=== PATIENT | male | born 2000 | race Caucasian/White ===

== ENCOUNTER 2024-02-28 16:12 | Emergency (ER) | payer MEDICARE, SELFPAY ==
--- NOTE | ~2024-02-28 | XR_ITS ---
EXAMINATION: XR CHEST CLINICAL INFORMATION: Chest pain COMPARISON: None available. TECHNIQUE: Frontal view of the chest was obtained. FINDINGS: The cardiomediastinal silhouette is within normal limits. The lungs are well expanded. There is no focal consolidation, edema, or effusion. No pneumothorax. No acute osseous abnormality. XR/XR chest 1V IMPRESSION: No acute pulmonary process seen.
--- NOTE | 2024-02-28 16:13 | ECG_ITS ---
Test Reason : CHEST PAIN Blood Pressure : / mmHG Vent. Rate : 092 BPM Atrial Rate : 092 BPM P-R Int : 176 ms QRS Dur : 084 ms QT Int : 326 ms P-R-T Axes : 042 072 038 degrees QTc Int : 403 ms Normal sinus rhythm Normal ECG No previous ECGs available Referred By: Generic ED Physician Electronically Signed By:KOMAL GARCIA MD
[2024-02-28 16:21] VITALS: BP 107/70; PULSE 96; RESP 16; TEMP 36.6; O2SAT 97; BMI 18.2
--- NOTE | 2024-02-28 16:26 | ED.GENADULT ---
HPI - General Adult General Chief complaint: Chest Pain Stated complaint: Chest pain Time Seen by Provider: 02/28/24 16:59 Source: patient Mode of arrival: ambulatory Limitations: no limitations History of Present Illness ED Provider: Lucretia Souza PA-C HPI narrative: Patient is a 23 year old assigned male at with no reported medical history presenting to the emergency department today with left sided chest pain. Patient states that last night he was at work, doing some heavy lifting, and now he is having pain with movement to the left in his chest. Patient denies any dizziness, lightheadedness, abdominal pain, nausea, vomiting, fever, chills, blurry vision, double vision, loss of vision, difficulty breathing, shortness of breath, back pain, night sweats, pain with urination, increased urinary frequency, increased urinary urgency, blood in his urine or stool, syncope or a near syncopal episode, recent trauma or falls, bowel incontinence, bladder incontinence, or any other complaints at this time. Onset (ago): day(s) Location: chest Severity: mild Severity scale (1-10): 3 Quality: aching and dull Pain Consistency: constant Relieving factors: none Exacerbating factors: movement Associated symptoms: chest pain Treatments prior to arrival: none Related Data Previous Rx's ?Medication ?Instructions ?Recorded cyclobenzaprine 5 mg tablet 5 mg PO TID PRN muscle spasm 7 02/28/24 days #21 tabs Allergies Allergy/AdvReac Type Severity Reaction Status Date / Time No Known Allergies Allergy Verified 02/28/24 16:28 Review of Systems Constitutional: Constitutional: Reports no additional constitutional complaints, Denies chills, Denies fever(s) and Denies night sweats Eyes: Eyes: Reports no additional eye complaints, Denies blurry vision, Denies change in vision, Denies diplopia, Denies eye discharge, Denies loss of vision and Denies eye pain ENT: Denies dizziness Cardiovascular: Cardiovascular: Reports no additional cardiovascular complaints, Reports chest pain, Denies lightheadedness, Denies Loss of Consciousness and Denies dyspnea Respiratory: Respiratory: Reports no additional respiratory complaints and Denies dyspnea Gastrointestinal: Gastrointestinal: Reports no additional gastrointestinal complaints, Denies abdominal pain, Denies melena, Denies hematochezia, Denies change in bowel habits and Denies change in stool character Genitourinary: Genitourinary: Reports no additional male genitourinary complaints, Denies hematuria, Denies oliguria, Denies difficulty urinating, Denies dysuria, Denies urinary frequency, Denies urinary hesitancy, Denies urinary incontinence and Denies urinary urgency Musculoskeletal: Musculoskeletal: Reports no additional musculoskeletal complaints, Denies numbness and Denies tingling Neurologic: Denies dizziness, Denies loss of vision, Denies numbness and Denies tingling Psychiatric: Psychiatric: Reports no additional psychiatric complaints Endocrine: Endocrine: Reports no additional endocrine complaints Hematologic/Lymphatic: Hematologic/Lymphatic: Reports no additional hematologic/lymphatic complaints Allergic/Immunologic: Allergic/Immunologic: Reports no additional allergic/immunologic complaints PMFSH Past Medical History Attestation statement: The following information was validated with the patient. Source: old records reviewed and nursing notes reviewed Social History Social History Advance Directives: No Advance Directives Information Provided: No Do you have a plan to hurt others: No Plan Physical Exam ED Vital Signs: Vital Signs - 24 hr 02/28/24 16:21 02/28/24 18:08 Temperature 97.8 F 98.2 F Pulse Rate 96 88 Respiratory Rate 16 16 Blood Pressure 107/70 136/78 Pulse Oximetry 97 97 Oxygen Delivery Method Room Air Room Air BMI result Body Mass Index 18.2 Const General: cooperative, no acute distress, alert and awake Nutritional Appearance: well nourished Orientation/consciousness: patient oriented x3 Limitations: no limitations HENMT Head: Yes normal to inspection and Yes atraumatic Ears: hearing grossly normal bilaterally and external ears normal General nose exam: Normal external nose present, no nasal discharge noted and no epistaxis Face and sinus: Yes normal facial exam, No abrasion and No laceration Mouth: Normal oral and palatal mucosa present, no drooling and no muffled voice Eyes General: appearance normal, both eyes and all related structures Periorbital: periorbital findings normal Eyelids: Yes eyelids normal Conjunctivae: conjunctivae normal Pupils: Equal, round and reactive pupils present EOM: EOMs intact bilaterally Neck Neck: Yes normal visual inspection, Yes full ROM and Yes no lymphadenopathy Chest Chest palpation & inspection: normal inspection of the chest Resp Effort & Inspection: normal respiratory effort and able to speak in complete sentences GI Inspection: Yes normal to inspection Neuro General: patient oriented x3 and moves all extremities Cranial nerves: Yes Equal, round and reactive pupils present Cognition (Neuro): normal cognition Motor exam (neuro): 5/5 motor strength present throughout Sensory Exam: Normal double simultaneous stimulation for sensation Coordination: [id number] test normal Extrem General: Yes normal to inspection, Yes full ROM and Yes capillary refill normal Psych Appearance: grossly normal Mental Status: mental status grossly normal Affect: normal affect Attitude: cooperative Thought process: Normal thought process present Thought content: Normal thought content present Insight: Good insight present (Psych) Course Course Course Narrative: RME: Done by MARTHA Olivas. 23 yold male presents to the ED for left sided chest pain that is worse on movement. Patient states last night lifting heavy patient and since then had chest pain that hurts on movement. Physical exam positive for left chest wall tenderness on palpation. EKG ordered. Lab x-ray ordered. Medications Administered Discontinued Medications Generic Name Dose Route Start Last Admin Trade Name Freq PRN Reason Stop Dose Admin Cyclobenzaprine HCl 5 mg 02/28/24 17:10 02/28/24 17:58 Cyclobenzaprine Hcl 5 Mg Tablet PO 02/28/24 17:11 5 mg ONCE ONE Administration Ketorolac Tromethamine 15 mg 02/28/24 17:10 02/28/24 17:58 Ketorolac Tromethamine 15 Mg/Ml Vial IM 02/28/24 17:11 15 mg ONCE ONE Administration Medical Decision Making Medical Decision Making [facility] Narrative: Patient is a 23 year old assigned male at with no reported medical history presenting to the emergency department today with left sided chest pain. Patient's physical exam was unremarkable. Patient's blood work was unremarkable. Patient's EKG was unremarkable. Patient's chest x-ray showed no acute process. I explained my physical exam findings as well as all test results to the patient. I answered all questions asked by the patient. I stressed the importance of the patient taking his medication as prescribed. I stressed the importance of the patient following up with his primary care provider. I stressed the importance of the patient returning to the emergency department immediately if his symptoms were to worsen or if he were to develop any dizziness, shortness of breath, difficulty breathing, chest pain, blurry vision, loss of vision, nausea, vomiting, abdominal pain, fever, chills, back pain, or any other complaints. Patient verbalized agreement and understanding with this treatment plan and discharge. Differential Diagnosis Differential Diagnoses: The differential diagnosis associated with the presentation includes Chest pain NSTEMI STEMI Chest wall pain Muscle spasm Muscle strain Muscle sprain Admission/Observation Consideration of admission/observation: Escalation of care including admission/observation considered Patient would have been admitted to the hospital had his work up had any findings where hospital admission was appropriate and his clinical presentation warranted hospital admission. Lab Data [facility] Lab Attestation statement: I reviewed the patient's lab results. My interpretation of these results are in the [facility] Rationale portion of this note. 02/28/24 16:38 02/28/24 16:38 Labs: Lab Results 02/28/24 Range/Units 16:38 WBC 8.1 (4.8-10.8) X10*3/uL RBC 4.83 (4.60-5.80) X10*6/uL Hgb 14.5 (14.0-18.0) g/dl Hct 40.9 L (42.0-52.0) % MCV 84.7 (80.0-98.0) fL MCH 30.0 (27.0-33.0) pg MCHC 35.5 (31.0-36.0) g/dl RDW 13.0 (11.0-16.0) % Plt Count 200 (160-400) X10*3/uL MPV 9.8 (9.4-12.4) fL Immature Gran % (Auto) 0.9 H (0.0-0.4) % Neut % (Auto) 60.5 (45-73) % Lymph % (Auto) 29.0 (20-40) % [place] % (Auto) 7.5 (2-11) % Eos % (Auto) 1.7 (0-4) % Baso % (Auto) 0.4 (0-2) % Lymph # (Auto) 2.4 (1.2-4.9) X10*3/uL [place] # (Auto) 0.6 (0.1-1.2) X10*3/uL Eos # (Auto) 0.1 (0.0-0.4) X10*3/uL Baso # (Auto) 0.0 (0.0-0.2) X10*3/uL Abs Immat Gran (auto) 0.07 H (0.00-0.03) X10*3/uL Absolute Neuts (auto) 4.9 (2.0-8.3) x10*3/uL Absolute Nucleated RBC 0.000 (0.0-0.012) X10*3/uL Nucleated RBC % (auto) 0.0 (0.0-0.2) /100WBC PT 11.8 (11.1-13.3) SEC INR 1.0 (0.9-1.1) APTT 33.1 (26.0-36.8) SEC Sodium 141 (135-145) mmol/L Potassium 4.3 (3.3-5.1) mmol/L Chloride 103 (96-108) mmol/L Carbon Dioxide 27 (22-29) mmol/L Anion Gap 15 (12-20) BUN 21 H (9-16) mg/dL Creatinine 0.78 (0.5-1.4) mg/dL Estim Creat Clear Calc 111.4 Estimated GFR > 60 Random Glucose 104 (60-115) mg/dL Calcium 10.6 H (8.4-10.2) mg/dL Total Bilirubin 0.5 (0.0-1.0) mg/dL AST 38 H (5-37) U/L ALT 74 H (0-40) U/L Alkaline Phosphatase 63 (39-117) U/L Troponin I High Sens < 2.7 (<3.5-35.0) ng/L Total Protein 8.6 H (6.5-8.0) g/dL Albumin 4.9 (3.5-5.0) g/dL Independent Interpretation I performed an independent interpretation of an: EKG and Plain X-Ray Interpretation: My interpretation is in agreement with the radiologist's impression of this imaging study. EXAMINATION: XR CHEST CLINICAL INFORMATION: Chest pain COMPARISON: None available. TECHNIQUE: Frontal view of the chest was obtained. FINDINGS: The cardiomediastinal silhouette is within normal limits. The lungs are well expanded. There is no focal consolidation, edema, or effusion. No pneumothorax. No acute osseous abnormality. XR/XR chest 1V IMPRESSION: No acute pulmonary process seen. Dictated By: Shaq Wilkinson MD Signed By: Electronically signed by Shaq Wilkinson MD 02/28/24 1656 Vent. Rate: 092 BPM Atrial Rate: 092 BPM P-R Int: 176 ms QRS Dur: 084 ms QT Int: 326 ms P-R-T Axes: 042 072 038 degrees QTc Int: 403 ms Normal sinus rhythm Normal ECG No previous ECGs available DD/ 1614 Radiology Impression Discussion of test interpretation with radiology: I have reviewed the radiologist's reading. Discharge Plan Discharge Clinical Impression: Atypical chest pain Patient Disposition: Home, Self-Care Instructions: Chest Pain (DC) Additional Instructions: Follow up with your primary care provider. Return to the emergency department immediately if your symptoms worsen or if you develop any dizziness, shortness of breath, difficulty breathing, chest pain, blurry vision, loss of vision, nausea, vomiting, abdominal pain, fever, chills, back pain, or any other complaints. Prescriptions: New cyclobenzaprine 5 mg tablet 5 mg PO TID PRN (Reason: muscle spasm) 7 Days Qty: 21 0RF Referrals: [facility] [place] [facility] [[place] Group] (Call to establish and follow up with a primary care provider. If you already have a primary care provider, please follow up with them.) [facility] [place] [facility] [Provider Group] [facility] [place] [facility] [Provider Group] Stand Alone Forms: Work/School Release Interventions: ED Discharge Assessment Last Done: 02/28/24 18:08 Discharge Date/Time: 02/28/24 18:09 Print Language: Croatian
[2024-02-28 16:41] LABS: MANUAL DIFF FLAG NO
[2024-02-28 16:44] LABS: Basophils Percent Auto 0.4 % (0-2); Eosinophils Absolute Auto 0.1 X10*3/uL (0.0-0.4); Eosinophils Percent Auto 1.7 % (0-4); Hematocrit 40.9 % (42.0-52.0); Hemoglobin 14.5 g/dl (14.0-18.0); Imm Gran Abs Auto 0.07 X10*3/uL (0.00-0.03); Imm Gran Pct Auto 0.9 % (0.0-0.4); Lymphocytes Absolute Auto 2.4 X10*3/uL (1.2-4.9); Mean Corpuscular HGB Conc 35.5 g/dl (31.0-36.0); Mean Corpuscular Volume 84.7 fL (80.0-98.0); Mean Platelet Volume 9.8 fL (9.4-12.4); Monocytes Absolute Auto 0.6 X10*3/uL (0.1-1.2); Monocytes Percent Auto 7.5 % (2-11); Neutrophils Absolute Auto 4.9 x10*3/uL (2.0-8.3); Neutrophils Percent Auto 60.5 % (45-73); Platelet Count 200 X10*3/uL (160-400); Red Blood Count 4.83 X10*6/uL (4.60-5.80); White Blood Count 8.1 X10*3/uL (4.8-10.8)
[2024-02-28 16:51] LABS: Prothrombin Time 11.8 SEC (11.1-13.3)
[2024-02-28 16:53] LABS: Partial Thromboplastin Time 33.1 SEC (26.0-36.8)
[2024-02-28 17:00] LABS: Alanine Aminotransferase 74 U/L (0-40); Albumin Level 4.9 g/dL (3.5-5.0); Alkaline Phosphatase 63 U/L (39-117); Anion Gap 15 (12-20); Aspartate Amino Transferase 38 U/L (5-37); Bilirubin Total 0.5 mg/dL (0.0-1.0); Blood Urea Nitrogen 21 mg/dL (9-16); Calcium 10.6 mg/dL (8.4-10.2); Carbon Dioxide 27 mmol/L (22-29); Chloride 103 mmol/L (96-108); Creatinine Clr Calc Pharmacy 111.4; Estimated Glomerular Filt Rate > 60; Glucose Random 104 mg/dL (60-115); Potassium 4.3 mmol/L (3.3-5.1); Sodium 141 mmol/L (135-145); Total Protein 8.6 g/dL (6.5-8.0)
[2024-02-28 17:13] LABS: Troponin-I High Sensitivity < 2.7 ng/L (<3.5-35.0)
[2024-02-28] MEDS: Ketorolac Tromethamine 15 MG/ML VIAL IM (17:58)
[2024-02-28] MEDS: Cyclobenzaprine HCl 5 MG TABLET PO (17:58)
[2024-02-28 18:08] VITALS: BP 136/78; PULSE 88; RESP 16; TEMP 36.8; O2SAT 97
== END 2024-02-28 18:09 | disposition home or self-care (01) ==
PROVIDERS: Physician Assistant; Emergency Provider Internal Medicine; PCP Internal Medicine
DX: R07.89 Other chest pain (principal); R05.9 Cough, unspecified
CPT/HCPCS: 36415; 71045; 80053; 84484; 85025; 85610; 85730; 93005; 96372; 99283; 99284; J1885

== ENCOUNTER → 2024-02-28 16:13 | Outpatient (BNV) | payer MEDICARE, SELFPAY | PROVIDERS: Emergency Provider Internal Medicine; PCP Internal Medicine; Visit Provider Internal Medicine Cardiovascular Disease | DX: R07.9 Chest pain, unspecified (principal) | CPT/HCPCS: 93010 ==

== ENCOUNTER 2025-05-22 20:36 | Emergency (ER) | payer MEDICARE, SELFPAY ==
--- NOTE | 2025-05-22 | ECG_ITS ---
Test Reason : CP Blood Pressure : */* mmHG Vent. Rate : 86 BPM Atrial Rate : 86 BPM P-R Int : 166 ms QRS Dur : 88 ms QT Int : 342 ms P-R-T Axes : 18 56 27 degrees QTcB Int : 409 ms Normal sinus rhythm Normal ECG When compared with ECG of 28-Feb-2024 16:14, No significant change was found Referred By: Generic ED Physician Electronically Signed By: MART FRANK
--- NOTE | ~2025-05-22 | XR_ITS ---
CLINICAL HISTORY: chest pain, diff breathing 2 view chest x-ray Comparison: Chest x-ray from 02/28/2024 Findings: Low lung volumes with mild bibasilar atelectasis and/or pneumonitis. No pneumothorax or pleural effusion. Imaged mediastinum and osseous structures appear unchanged. IMPRESSION: Mild bibasilar atelectasis This document has been electronically signed by: Darío Sheridan MD on 05/22/2025 21:38:34
[2025-05-22 20:51] LABS: MANUAL DIFF FLAG NO
[2025-05-22 20:52] LABS: Hematocrit 43.1 % (42.0-52.0); Hemoglobin 15.1 g/dl (14.0-18.0); Imm Gran Abs Auto 0.06 X10*3/uL (0.00-0.03); Imm Gran Pct Auto 0.7 % (0.0-0.4); Lymphocytes Absolute Auto 2.5 X10*3/uL (1.2-4.9); Mean Corpuscular HGB Conc 35.0 g/dl (31.0-36.0); Mean Corpuscular Hemoglobin 29.1 pg (27.0-33.0); Mean Corpuscular Volume 83.0 fL (80.0-98.0); NRBC Abs Auto 0.000 X10*3/uL (0.0-0.012); NRBC Pct Auto 0.0 /100WBC (0.0-0.2); Platelet Count 218 X10*3/uL (160-400); Red Blood Count 5.19 X10*6/uL (4.60-5.80); White Blood Count 8.8 X10*3/uL (4.8-10.8)
[2025-05-22 21:01] VITALS: BP 139/61; PULSE 83; RESP 20; TEMP 36.3; O2SAT 96; BMI 34.2
[2025-05-22 21:07] LABS: Alanine Aminotransferase 234 U/L (0-40); Albumin Level 5.2 g/dL (3.5-5.0); Alkaline Phosphatase 88 U/L (39-117); Anion Gap 15 (12-20); Aspartate Amino Transferase 170 U/L (5-37); Blood Urea Nitrogen 14 mg/dL (9-16); Calcium 9.6 mg/dL (8.4-10.2); Carbon Dioxide 26 mmol/L (22-29); Chloride 102 mmol/L (96-108); Creatinine Clr Calc Pharmacy 147.7; Estimated Glomerular Filt Rate > 60; Potassium 3.9 mmol/L (3.3-5.1); Sodium 139 mmol/L (135-145); Total Protein 8.7 g/dL (6.5-8.0)
[2025-05-22 21:14] LABS: Troponin-I High Sensitivity < 2.7 ng/L (<3.5-35.0)
--- NOTE | 2025-05-22 23:40 | ED_ITS ---
HPI - Chest Pain General Chief Complaint: Chest Pain Stated Complaint: SEVERE CHEST PAIN, DIFFICULTY BREATHING Time Seen by Provider: 05/22/25 23:35 Source: patient Mode of arrival: ambulatory Limitations: no limitations History of Present Illness ED Provider: Jimmy THOMAS HPI narrative: The patient is a 25-year-old male presenting to the ED for evaluation of acute onset sharp right-sided chest pain with associated shortness of breath which began today while at rest. Patient reports he was going through his mail at home when he developed sudden onset severe pain in the right chest, patient reports he attempted to lay down however symptoms worsen any presenting to the ED for evaluation. The patient reports he has been feeling otherwise well, worked a full overnight shift with no change in normal activity, slept well throughout the day, and then woke this evening shortly before pain began. Patient denies any recent travel or lower extremity complaint. The patient denies any history of coagulopathy. The patient denies associated fever/chills, nausea, vomiting, abdominal pain, headache, near-syncope, or syncope. The patient reports symptoms are exacerbated by deep respiration but also by movement and direct palpation. The patient reports he is otherwise healthy, denies history of similar symptoms. Related Data Previous Rx's ?Medication ?Instructions ?Recorded cyclobenzaprine 5 mg tablet 5 mg PO TID PRN muscle spa sm 7 02/28/24 days #21 tabs acetaminophen 500 mg capsule 1,000 mg (2 x 500 mg) PO .q8 PRN 05/23/25 fever or pain #30 caps ibuprofen 600 mg tablet 600 mg PO Q8H PRN fever or p ain 05/23/25 #30 tabs Allergies Allergy/AdvReac Type Severity Reaction Status Date / Time Penicillins Allergy Unknown Verified 05/22/25 21:05 Review of Systems 2 Review of Systems: Yes all other systems are reviewed and are negative PMFSH Social History Social History Smoked in Last 30 Days: No Use of substances other than those prescribed or required for medical reasons: No Advance Directives: No Advance Directives Information Provided: Yes Physical Exam 2 Vital Signs: Vital Signs: Last Vital Signs Temp 98.8 F 05/23/25 00:50 Pulse 92 05/23/25 00:50 Resp 22 H 05/23/25 00:50 BP 119/67 05/23/25 00:50 Pulse Ox 98 05/23/25 00:50 O2 Del Method Room Air 05/23/25 00:50 BMI result Body Mass Index 34.2 CONSTITUTIONAL: The patient appears non-toxic, well nourished and in no acute distress. Vital signs as documented. HEAD: Atraumatic, normocephalic. EYES: EOMs grossly intact, pupils equal, conjunctiva clear, no exudate. ENT: Nares patent, no discharge. Airway patent, no audible stridor, visible mucosa is pink and moist without noted lesions. NECK: Trachea is midline, no obvious masses or gross abnormalities. CHEST: Symmetric movement, normal appearance. Pain is reproducible with direct palpation of the superior anterolateral right chest, no crepitus, or deformity, no contusion. LUNGS: LS present and CTAB, no w/r/r. Non-labored work of breathing. Patient grimaces with deep respiration. CARDIAC: Regular Rhythm, S1/S2 appreciated, no murmurs, rubs or gallops. ABDOMEN: Abdomen soft and non-tender x4 quadrants, no palpable masses or organomegaly. : Deferred. EXTREMITIES: Patient reports pain in the right chest with crossing right upper extremity over the chest, no other painful range of motion. Normal tone, moves all other extremities spontaneously without reported pain. No obvious acute injury or deformity noted. No calf tenderness or pedal edema. NEURO: Alert and oriented x3, CN II-XII appear grossly intact. Cerebellar Functioning grossly intact. No obvious sensory or motor deficits. Speech clear and appropriate. PSYCH: normal affect, appropriate eye contact, fluid speech, with appropriate response to questioning. No reported suicidality or homicidality. SKIN: Warm, dry, color appropriate, normal turgor. No rashes noted. Medications Administered Discontinued Medications Generic Name Dose Route Start Last Admin Trade Name Freq PRN Reason Stop Dose Admin Acetaminophen 975 mg 05/22/25 23:59 05/23/25 00:03 Acetaminophen 325 Mg Tablet PO 05/23/25 00:00 975 mg ONCE ONE Administration Medical Decision Making Medical Decision Making MDM Narrative: 12:12 AM 05/23/2025 (Danuta THOMAS): The patient is a 25-year-old male presenting to the ED for evaluation of acute onset sharp right-sided chest pain with associated shortness of breath which began today while at rest. Patient reports he was going through his mail at home when he developed sudden onset severe pain in the right chest, patient reports he attempted to lay down however symptoms worsen any presenting to the ED for evaluation. The patient reports he has been feeling otherwise well, worked a full overnight shift with no change in normal activity, slept well throughout the day, and then woke this evening shortly before pain began. Patient denies any recent travel or lower extremity complaint. The patient denies any history of coagulopathy. The patient denies associated fever/chills, nausea, vomiting, abdominal pain, headache, near- syncope, or syncope. The patient reports symptoms are exacerbated by deep respiration but also by movement and direct palpation. The patient reports he is otherwise healthy, denies history of similar symptoms. In the ED patient is nontoxic appearing, appears in no acute distress, patient does have tenderness to palpation of the right superior anterolateral chest overlying the right pectoralis muscle, without associated crepitus, contusion, or other evidence of trauma. The patient's pain is also reproduced with crossing the right upper extremity across his chest, and with deep respiration. The patient's laboratory evaluation is markedly reassuring, no leukocytosis, anemia, electrolyte abnormality, or ALLIE. Patient's EKG is nonischemic, without arrhythmia. The patient's troponin is negative. Chest x-ray shows no focal consolidation or other acute cardiopulmonary process. The patient's presentation is likely secondary to musculoskeletal strain, however given the patient's sudden onset, no identifiable provoking cause, and reproducibility with deep respiration, we will obtain D-dimer to rule out PE. Admission/Observation Consideration of admission/observation: Escalation of care including admission/observation considered Lab Data MDM Lab Attestation statement: I reviewed the patient's lab results. 05/22/25 20:47 05/22/25 20:47 Labs: Lab Results 05/22/25 05/23/25 05/23/25 Range/Units 20:47 00:05 00:37 WBC 8.8 (4.8-10.8) X10*3/uL RBC 5.19 (4.60-5.80) X10*6/uL Hgb 15.1 (14.0-18.0) g/dl Hct 43.1 (42.0-52.0) % MCV 83.0 (80.0-98.0) fL MCH 29.1 (27.0-33.0) pg MCHC 35.0 (31.0-36.0) g/dl RDW 13.2 (11.0-16.0) % Plt Count 218 (160-400) X10*3/uL MPV 10.3 (9.4-12.4) fL Immature Gran % (Auto) 0.7 H (0.0-0.4) % Neut % (Auto) 61.0 (45-73) % Lymph % (Auto) 28.1 (20-40) % [place] % (Auto) 5.9 (2-11) % Eos % (Auto) 3.7 (0-4) % Baso % (Auto) 0.6 (0-2) % Lymph # (Auto) 2.5 (1.2-4.9) X10*3/uL [place] # (Auto) 0.5 (0.1-1.2) X10*3/uL Eos # (Auto) 0.3 (0.0-0.4) X10*3/uL Baso # (Auto) 0.1 (0.0-0.2) X10*3/uL Abs Immat Gran (auto) 0.06 H (0.00-0.03) X10*3/uL Absolute Neuts (auto) 5.4 (2.0-8.3) x10*3/uL Absolute Nucleated RBC 0.000 (0.0-0.012) X10*3/uL Nucleated RBC % (auto) 0.0 (0.0-0.2) /100WBC D-Dimer High Sensitivty 162 NG/ML Sodium 139 (135-145) mmol/L Potassium 3.9 (3.3-5.1) mmol/L Chloride 102 (96-108) mmol/L Carbon Dioxide 26 (22-29) mmol/L Anion Gap 15 (12-20) BUN 14 (9-16) mg/dL Creatinine 0.87 (0.5-1.4) mg/dL Estim Creat Clear Calc 147.7 Estimated GFR > 60 Random Glucose 107 (60-115) mg/dL Calcium 9.6 D (8.4-10.2) mg/dL Total Bilirubin 0.9 (0.0-1.0) mg/dL AST 170 H (5-37) U/L ALT 234 H (0-40) U/L Alkaline Phosphatase 88 (39-117) U/L Troponin I High Sens < 2.7 (<3.5-35.0) ng/L Total Protein 8.7 H (6.5-8.0) g/dL Albumin 5.2 H (3.5-5.0) g/dL Urine Color Yellow Urine Appearance Clear Urine pH 6.5 (5.0-9.0) Ur Specific [place] 1.010 (1.005-1.025) Urine Protein Negative (Neg-Trace) mg/dL Urine Glucose (UA) Negative (Negative) mg/dL Urine Ketones Negative (Negative) mg/dL Urine Blood Negative (Negative) Urine Nitrite Negative (Negative) Ur Leukocyte Esterase Negative (Negative) Independent Interpretation I performed an independent interpretation of an: EKG (EKG shows sinus rhythm with a rate of 86, no evidence of acute ischemia, no ST elevation, no ectopy. QTC 409. Compared to previous on 02/28/2024 there are no significant morphology changes.) Radiology Impression Discussion of test interpretation with radiology: I have reviewed the radiologist's reading. Radiologist Impression: CLINICAL HISTORY: chest pain, diff breathing 2 view chest x-ray Comparison: Chest x-ray from 02/28/2024 Findings: Low lung volumes with mild bibasilar atelectasis and/or pneumonitis. No pneumothorax or pleural effusion. Imaged mediastinum and osseous structures appear unchanged. IMPRESSION: Mild bibasilar atelectasis This document has been electronically signed by: Darío Sheridan MD on 05/22/2025 21:38:34 External Record Review External record reviewed: Outpatient record and Prior outpatient labs Prescription Management I considered prescription management with: Pain Medication Discharge Plan Discharge Clinical Impression: Anterior chest wall pain Patient Disposition: Home, Self-Care Instructions: Noncardiac Chest Pain (ED), Chest Wall Pain (ED) Additional Instructions: Thank you for choosing [facility]'s Emergency Department for your care today. Thankfully your laboratory evaluation, chest x-ray, EKG, and exam today are reassuring. There was no evidence of an acute cardiac, pulmonary, infectious, metabolic, coagulopathic (blood clot), or other dangerous cause for your chest pain. At this time there is no indication for admission to the hospital or continued ED observation, and it is safe to discharge you home. Seeing as your pain is reproducible with movement and palpation, and your workup is otherwise negative, your pain is likely secondary to musculoskeletal strain of the right chest wall. You may take alternating (staggered) doses of ibuprofen 600mg and Tylenol 1000mg every 4 hours as needed for any additional pain. Please rest the injured area, and apply ice for 20 minutes every hour. We have treated you with a lidocaine patch, if you find this provides you significant relief additional patches can be purchased at any local pharmacy without a prescription. Please follow up with your primary care physician for re-evaluation, additional management of your symptoms, and continued preventative care. If you do not have a primary care physician, please call the [facility] at [phone] to establish a new primary care physician. While waiting to establish your new primary care physician, you can call our Walk[facility]in [facility] at [phone] for non-emergency needs. Please return to the emergency department if you develop a severe or sudden change in your symptoms, a fever over 100.4 that does not improve with Tylenol or Ibuprofen, recurrent vomiting, or any other new or worsening symptoms or concerns. Prescriptions: New ibuprofen 600 mg tablet 600 mg PO Q8H PRN (Reason: fever or pain) Qty: 30 0RF acetaminophen 500 mg capsule 1,000 mg PO .q8 PRN (Reason: fever or pain) Qty: 30 0RF No Action cyclobenzaprine 5 mg tablet 5 mg PO TID PRN (Reason: muscle spasm) 7 Days Qty: 21 0RF Referrals: Deepti Bates MD [Primary Care Provider, Internal Medicine] Clinical Impression: Anterior chest wall pain Stand Alone Forms: Work/School Release Print Language: Syriac
--- OUTSIDE RECORDS SUMMARY | 2025-05-22 23:52 | XMS_ITS | Clinical Summary ---
Author Organization [facility] Address [address] [place], [place] [id number] Phone Care Team Providers Care Booking Supervisor Name Role Phone Deepti Bates MD Primary Care Provider [phone] Allergies Active Allergy Reactions Criticality Noted Date Comments Penicillins 03/28/2022 Medications prazosin (MINIPRESS) 2 MG capsule Take 2 mg by mouth 2 (two) times a day. 12/21/2021 Active QUEtiapine (SEROQUEL) 25 MG tablet Take 75 mg by mouth nightly at bedtime. 12/21/2021 Active dextroamphetami ne-amphetamine (ADDERALL) 5 mg Tab 5 mg every morning. Active cephalexin (KEFLEX) 500 MG capsule Take 1 capsule (500 mg total) by mouth 3 (three) times a day. 21 capsule 03/28/2022 Active Social History Tobacco Use Types Packs/Day Years Used Date Smoking Tobacco: Never Smokeless Tobacco: Never Alcohol Use Standard Drinks/Week Comments Not Currently 0 (1 standard drink = 0.6 oz pur e alcohol) Education Answer Date Recorded Are you interested in more education? Not on gay e 01/18/2023 Are you concerned about learning? Not on file 01/18/2023 No 01/18/2023 No 01/18/2023 Digital Access Answer Date Recorded No 02/01/2023 No 02/01/2023 Reliable internet access at home? Not on file 02/01/2023 Device with a working camera? Not on file Sex and Gender Information Value Date Recorded Sex Assigned at Not on file Legal Sex Male 5:46 PM EST Gender Identity Not on file Sexual Orientation Not on file Last Filed Vital Signs Vital Sign Reading Time Taken Comments Blood Pressure 117/80 03/28/2022 10:37 PM EDT Pulse 94 03/28/2022 10:37 PM EDT Temperature 36.3 C (97.3 F) 03/28/2022 10:37 PM EDT Respiratory Rate 18 03/28/2022 10:37 PM EDT Oxygen Saturation 98% 03/28/2022 10:37 PM EDT Inhaled Oxygen Concentration - - Weight 103.9 kg (229 lb) 03/28/2022 10:57 PM EDT Height 172.7 cm (5' 8 ) 03/28/2022 10:57 PM EDT Body Mass Index 34.82 03/28/2022 10:57 PM EDT Plan of Treatment Not on file Medical Devices Not on file Insurance MEDICARE PART A & B MEDICARE PART A & B [facility] [address] [place] [address] MEDICARE PART A & B [id number] [place] [address] MEDICARE PART A & B MEDICARE PART A & B HEALTH MEDICARE PART A & B [facility] B HEALTH MEDICARE PART A & B [facility] MEDICARE PART A & B [facility] Care Teams Booking Supervisor Relationship Specialty Start Date End Date Deepti Bates MD [address] [place] [id number] PCP - General Internal Medicine 03/28/22 Additional Source Comments The information contained in this document represents components of the legal health record. It is not the complete legal health record.[facility]
--- NOTE | 2025-05-23 00:06 | PC.NURSE ---
pt medicated per MAR, pt oriented, respirations even and unlabored, states pain in chest is 7/10.
[2025-05-23 00:27] LABS: D Dimer High Sensitivity 162 NG/ML
[2025-05-23 00:50] VITALS: BP 119/67; PULSE 92; RESP 22; TEMP 37.1; O2SAT 98
[2025-05-23 00:50] LABS: Appearance Urine Clear; Glucose Urine UA Negative (Negative); PH 6.5 (5.0-9.0); Specific Gravity - Urine 1.010 (1.005-1.025)
[2025-05-23] MEDS: Lidocaine 4 % Patch ADH..PATCH 1 PATCH TRANSDERMA (01:30)
--- NOTE | 2025-05-23 01:35 | PC.NURSE ---
pt medicated per MAR.
[2025-05-23 01:36] VITALS: BP 119/67; PULSE 92; RESP 22; TEMP 37.1; O2SAT 98
== END 2025-05-23 01:39 | disposition home or self-care (01) ==
PROVIDERS: Physician Assistant; Emergency Provider Emergency Medicine; PCP Internal Medicine
DX: R07.89 Other chest pain (principal); R06.02 Shortness of breath; Z79.899 Other long term (current) drug therapy
CPT/HCPCS: 36415; 71046; 80053; 81003; 84484; 85025; 85379; 93005; 96372; 99284; 99285; J1885

== ENCOUNTER → 2025-05-22 20:36 | Outpatient (BNV) | payer MEDICARE, SELFPAY | PROVIDERS: PCP Internal Medicine; Visit Provider Radiology Neuroradiology | DX: R07.89 Other chest pain (principal); R06.02 Shortness of breath | CPT/HCPCS: 71046 ==

== ENCOUNTER → 2025-05-22 20:39 | Outpatient (BNV) | payer MEDICARE, SELFPAY | PROVIDERS: Emergency Provider Emergency Medicine; PCP Internal Medicine; Visit Provider Internal Medicine | DX: R07.89 Other chest pain (principal) | CPT/HCPCS: 93010 ==